=== PATIENT | female | born 1975 | race Caucasian/White ===

== ENCOUNTER 2016-12-15 01:09 | Emergency (ER) | payer OTHER ==
[~2016-12-15] VITALS: Ht 162.6 cm; Wt 67.1 kg
[2016-12-15 01:13] VITALS: TEMP 36.9; Ht 162.6 cm; Wt 67.1 kg
[2016-12-15 01:20] VITALS: O2SAT 96
[2016-12-15] MEDS ORDERED: SODIUM CHLORIDE 0.9% 1000ML 1,000 ML IV STA ×2 (01:24)
[2016-12-15] MEDS ORDERED: ALUMINUM/MAGNESIUM SUSP 30 ML UDC PO STA (01:24)
[2016-12-15] MEDS ORDERED: ONDANSETRON INJ 2 MG/ML 2 ML VIAL IV STA (01:24)
[2016-12-15] MEDS ORDERED: LIDOCAINE HCL 2% VISC SOLN 20 ML UDC PO STA (01:24)
[2016-12-15 01:53] LABS: BASO % 0.3 %; BASO ABS # 0.03 K/uL (0-0.2); COMPLETE YES; EOS % 0.5 %; HEMATOCRIT 37.9 % (37-47); IG% 0.3 %; LYMPH % 21.6 %; LYMPH ABS # 2.28 K/uL (1.2-3.4); MEAN CORPUSCULAR HEMOGLOBIN 33.3 pg (25-34); MEAN CORPUSCULAR HGB CONC 35.4 g/dl (32-36); MEAN PLATELET VOLUME 10.2 fL (7.4-10.4); MONO % 4.5 %; NEUT % 72.8 %; PLATELET COUNT 258 K/uL (130-400); RED BLOOD COUNT 4.03 M/uL (4.2-5.4); WHITE BLOOD COUNT 10.55 K/uL (4.8-10.8)
[2016-12-15] MEDS ORDERED: IBUP-1428 PO (01:54)
[2016-12-15] MEDS ORDERED: VENL1CAP92 PO (01:54)
[2016-12-15 02:14] LABS: BUN/CREATININE RATIO 16.1 (10-20); CALCIUM 8.2 mg/dl (8.5-10.1); CREATININE 0.95 mg/dl (0.60-1.20); POTASSIUM 3.8 mmol/L (3.5-5.1)
[2016-12-15] MEDS ORDERED: ONDANSETRON HOME PACK 4MG OD TAB PO ONE (02:45)
[2016-12-15 03:09] VITALS: BP 93/71; PULSE 80; O2SAT 97
--- NOTE | 2016-12-15 07:15 | EMERGENCY ROOM VISIT NOTE ---
History First contact with patient: 01:12 Chief Complaint: ALCOHOL OVERDOSE Stated Complaint: ALCOHOL OVERDOSE Nursing Triage Summary: Found on BR floor at home after drinking at a wedding today. History of Present Illness The patient is a 41 year old female who presents to the Emergency Room with complaints of drinking alcohol tonight who started vomiting and feeling weak. Patient was at a wedding and they were driving to the bars when these symptoms started. She vomited twice out of [employer] vehicle. Patient states she normally can handle her alcohol. This is abnormal for her. Patient states she did not think she drink that much alcohol at the wedding. Patient started vomiting and nearly passed out. Patients sister tried to get her to drink water and then summoned EMS. Patient states she feels nauseous and has an upset stomach. Patient denies chest pain, dyspnea, drug use, fever, chills, localized weakness. Review of Systems See HPI for pertinent positives & negatives. A total of 10 systems reviewed and were otherwise negative. Past Medical/Surgical History None Social History Smoking Status: Never Smoker Smokeless Tobacco Use: No Alcohol Use: occasionally Drug Use: none Housing Status: lives with family Current/Historical Medications Scheduled Venlafaxine Hcl (Effexor Xr), 37.5 MG PO DAILY Scheduled PRN Ibuprofen (Motrin), 800 MG PO Q8H PRN for Pain Physical Exam Vital Signs Date Time Temp Pulse Resp B/P (MAP) Pulse Ox O2 Delivery O2 Flow Rate FiO2 12/15/16 03:09 80 20 93/71 97 12/15/16 02:06 75 18 93/71 100 Room Air 12/15/16 01:20 96 Room Air 12/15/16 01:20 Room Air 12/15/16 01:16 74 12/15/16 01:13 36.9 75 22 101/67 96 Room Air Pain Rating (0-10): 0 Physical Exam VITALS: Vitals are noted on the nurse's note and reviewed by myself. Vital signs stable. GENERAL: Pleasant female with each which showed her, in no acute distress, nondiaphoretic, well-developed well-nourished. SKIN: The skin was without rashes, erythema, edema, or bruising. There is no tenting of the skin. Capillary reflex less than 2 seconds. HEAD: Normocephalic atraumatic. EARS: External auditory canals clear, tympanic membranes pearly muhammad without erythema or effusion bilaterally. EYES: Pupils equal round and reactive to light and accommodation. Conjunctivae with injection, sclerae without icterus. Extraocular movements intact. NOSE: Patent, turbinates without inflammation or discharge. MOUTH: Mucous membranes moist. Pharynx without erythema or exudate. Uvula midline. Airway patent. Tongue does not deviate. NECK: Supple without nuchal rigidity. No lymphadenopathy. No thyromegaly. Cervical spine is nontender. No JVD. HEART: Regular rate and rhythm without murmurs gallops or rubs. LUNGS: Clear to auscultation bilaterally without wheezes, rales or rhonchi. No dullness to percussion. No retractions or accessory muscle use. ABDOMEN: Positive bowel sounds x 4. Normal tympanic percussion. Soft, nontender, without masses or organomegaly. Stevens sign negative. No guarding or rebound tenderness. MUSCULOSKELETAL: No muscle atrophy, erythema, or edema noted. NEURO: Patient was alert and oriented to person place and time. Normal sensation to light and sharp touch. No focal neurological deficits. Medical Decision & Procedures Laboratory Results 12/15/16 01:25 Red Blood Count 4.03, Mean Corpuscular Volume 94.0, Mean Corpuscular Hemoglobin 33.3, Mean Corpuscular Hemoglobin Concent 35.4, Mean Platelet Volume 10.2, Neutrophils (%) (Auto) 72.8, Lymphocytes (%) (Auto) 21.6, Monocytes (%) (Auto) 4.5, Eosinophils (%) (Auto) 0.5, Basophils (%) (Auto) 0.3, Neutrophils # (Auto) 7.68, Lymphocytes # (Auto) 2.28, Monocytes # (Auto) 0.48, Eosinophils # (Auto) 0.05, Basophils # (Auto) 0.03 12/15/16 01:25 Test 12/15/16 01:25 White Blood Count 10.55 K/uL (4.8-10.8) Red Blood Count 4.03 M/uL (4.2-5.4) Hemoglobin 13.4 g/dL (12.0-16.0) Hematocrit 37.9 % (37-47) Mean Corpuscular Volume 94.0 fL (80-100) Mean Corpuscular Hemoglobin 33.3 pg (25-34) Mean Corpuscular Hemoglobin Concent 35.4 g/dl (32-36) Platelet Count 258 K/uL (130-400) Mean Platelet Volume 10.2 fL (7.4-10.4) Neutrophils (%) (Auto) 72.8 % Lymphocytes (%) (Auto) 21.6 % Monocytes (%) (Auto) 4.5 % Eosinophils (%) (Auto) 0.5 % Basophils (%) (Auto) 0.3 % Neutrophils # (Auto) 7.68 K/uL (1.4-6.5) Lymphocytes # (Auto) 2.28 K/uL (1.2-3.4) Monocytes # (Auto) 0.48 K/uL (0.11-0.59) Eosinophils # (Auto) 0.05 K/uL (0-0.5) Basophils # (Auto) 0.03 K/uL (0-0.2) RDW Standard Deviation 45.2 fL (36.4-46.3) RDW Coefficient of Variation 13.1 % (11.5-14.5) Immature Granulocyte % (Auto) 0.3 % Immature Granulocyte # (Auto) 0.03 K/uL (0.00-0.02) Anion Gap 5.0 mmol/L (3-11) Est Creatinine Clear Calc Drug Dose 74.9 ml/min Estimated GFR () 87.4 Estimated GFR (Non- 75.4 BUN/Creatinine Ratio 16.1 (10-20) Calcium Level 8.2 mg/dl (8.5-10.1) Ethyl Alcohol mg/dL 188.0 mg/dl (0-3) Medications Administered Medications (Trade) Dose Ordered Sig/Marcell Route Start Time Stop Time Status Last Admin Dose Admin Lidocaine HCl (Viscous Lidocaine 2% Soln) 10 ml NOW STAT PO 12/15/16 01:24 12/15/16 01:26 DC 12/15/16 01:59 10 ML Al Hydroxide/Mg Hydroxide (Maalox Susp) 30 ml NOW STAT PO 12/15/16 01:24 12/15/16 01:26 DC 12/15/16 01:59 30 ML Sodium Chloride 1,000 ml @ 999 mls/hr Q1H1M STAT IV 12/15/16 01:24 12/15/16 02:24 DC 12/15/16 02:00 999 MLS/HR Sodium Chloride 1,000 ml @ 125 mls/hr Q8H STAT IV 12/15/16 01:24 12/15/16 03:51 DC 12/15/16 02:00 125 MLS/HR Ondansetron HCl (Zofran Inj) 4 mg NOW STAT IV 12/15/16 01:24 12/15/16 01:26 DC 12/15/16 02:00 4 MG Ondansetron HCl (ZOFRAN ODT 4MG Home Pack) 1 homepack UD ONCE PO 12/15/16 02:45 12/15/16 02:46 DC 12/15/16 02:42 1 HOMEPACK ED Course Prior records/ancillary studies reviewed. Triage Nursing notes reviewed. Additional history obtained from family. The patient's history was concerning for altered mental status and a possible alcohol overdose. Differential diagnosis: Etiologies such as alcohol intoxication, toxicologic, infection, hypoglycemia, electrolyte abnormalities, cardiac sources, intracerebral event, neurologic, as well as others were entertained. Physical examination: As above. The patient is clinically intoxicated. no trauma noted. ER treatment provided: Monitoring Aspiration precautions The patient was frequently reassessed. Diagnostic interpretation by me: Cardiac monitoring did not reveal any evidence of dysrhythmia. The labs revealed no worrisome leukocytosis or electrolyte abnormality. The patient's blood alcohol level was 188 mg/dL. This appears to be consistent with an isolated overdose of alcohol. Patient did begin to vomit after drinking alcohol tonight. She started feeling quite weak after this. I do believe her symptoms are most likely related to lack of sleep and not eating and drinking as she normally does. Patient states she is normally quite fit and does not drink this much alcohol. By the evaluation outlined above emergent etiologies such as trauma, infection, hypoglycemia, electrolyte abnormalities, cardiac sources, intracerebral event, neurologic,as well as others were deemed relatively unlikely. Outpatient prescription management: None Referral: The patient was referred back to their primary care physician for follow-up in 2 to 3 days for a recheck of their current condition. Case reviewed with my attending Medical Decision As above Medication Reconcilliation Current Medication List: was personally reviewed by me Blood Pressure Screening Patient's blood pressure: Normal blood pressure Impression Primary Impression: Vomiting Additional Impression: Alcoholic intoxication Departure Information Dispostion Home / Self-Care Condition GOOD Referrals No Doctor, Assigned (PCP) Forms HOME CARE DOCUMENTATION FORM, IMPORTANT VISIT INFORMATION Patient Instructions Vomiting - [facility], Alcohol Intoxication - [facility], My [facility] Additional Instructions DO NOT drive, drink alcohol, operate machinery, or perform dangerous activities today. You were given medications in the ER that can affect your ability to safely function or operate a vehicle. Zofran(odansetron) tablets 4mg: Take one and allow it to dissolve in your mouth every four to six hours as needed for nausea or vomiting. Acetaminophen(Tylenol) may be used for fever or pain. Use 1000mg every six hours as needed. Avoid using more than 3000mg in a 24 hour period. Rest and drink plenty of fluids as tolerated. Slow sips of water or sports drinks are recommended instead of large amounts all at once. Continue current medications. Once your stomach is settled start with a clear liquid diet (jello, soup broth, etc.) and then advance as tolerated. You should avoid full, heavy meals for about 24 hrs from the time your symptoms resolved. Return to the ER for persistent vomiting, fevers, abdominal pain, chest pains, difficulty breathing, black or bloody stools, worsening of your condition, or as needed. Follow up with your primary physician in 2-3 days for a recheck of your current condition. Problem Qualifiers Primary Impression: Vomiting Vomiting type: unspecified Vomiting Intractability: non-intractable Nausea presence: with nausea Qualified Codes: R11.2 - Nausea with vomiting, unspecified Additional Impression: Alcoholic intoxication Complication of substance-induced condition: uncomplicated Qualified Codes: F10.920 - Alcohol use, unspecified with intoxication, uncomplicated
== END 2016-12-15 03:10 | disposition home or self-care (01) ==
LOC: EDBD 01:09 → MERGE 01:11 → C.EDB 01:11
DX: R11.2 Nausea with vomiting, unspecified (principal); F10.920 Alcohol use, unspecified with intoxication, uncomplicated; Y90.6 Blood alcohol level of 120-199 mg/100 ml